=== PATIENT | female | born 1965 | race American Indian/Alaskan Native ===

== ENCOUNTER 2021-08-28 19:11 | Emergency (ER) | payer SELFPAY ==
[2021-08-28 19:29] VITALS: BP 136/80
== END 2021-08-29 14:18 | disposition left against medical advice (07) ==
LOC: ED 19:11
DX: R00.0 Tachycardia, unspecified (principal); R55 Syncope and collapse; Z53.21 Procedure and treatment not carried out due to patient leaving prior to being seen by health care provider
CPT/HCPCS: 93005